=== PATIENT | male | born 1995 | race Caucasian/White ===

== ENCOUNTER → 2023-07-21 | Outpatient (REF) | payer OTHER ==
[2023-07-21 13:40] LABS: SEMEN APPEARANCE OPAQUE (OPAQUE); SEMEN VISCOSITY LIQUID (LIQUID); SEMEN VOLUME 1.2 ml (2.0-5.0)
[2023-07-21 13:41] LABS: SPERM CONCENTRATION 69.9 M/ml (>=15.0); WBC CONCENTRATION >1 M/ml (<=1 M/ml)
== END ==
LOC: M LAB REF 13:29
PROVIDERS: ATTEND Nurse Practitioner Family
DX: N46.9 Male infertility, unspecified (principal)

== ENCOUNTER 2023-08-22 16:50 | Emergency (ER) | payer OTHER ==
[~2023-08-22] VITALS: Ht 162.6 cm; Wt 68.2 kg
[2023-08-22 16:50] VITALS: BP 143/89; TEMP 97.7; O2SAT 99
[2023-08-22] MEDS ORDERED: PRED20TA PO (18:10)
== END 2023-08-22 18:30 | disposition home or self-care (01) ==
LOC: M ED 16:50
DX: R21 Rash and other nonspecific skin eruption (principal); F17.210 Nicotine dependence, cigarettes, uncomplicated

== ENCOUNTER 2024-03-29 14:20 | Emergency (ER) | payer OTHER ==
[~2024-03-29] VITALS: Ht 162.6 cm; Wt 71.0 kg
[~2024-03-29 14:20] MED LIST: PRED20TA PO
[2024-03-29] MEDS: PROPARACAINE 0.5% OPHTH SOL 15ML OD ONE (16:05)
[2024-03-29] MEDS: FLUORESCEIN OPHTH 1MG STRIP OD ONE (16:05)
[2024-03-29] MEDS ORDERED: OFLO5DRO OD (16:36)
[2024-03-29] MEDS: OFLOXACIN 0.3 % (OCUFLOX) OPTH SOL 5ML OD ONE (16:38)
[2024-03-29 16:40] VITALS: BP 117/67; TEMP 98.1; O2SAT 97
== END 2024-03-29 16:43 | disposition home or self-care (01) ==
LOC: M ED 14:20
DX: H10.31 Unspecified acute conjunctivitis, right eye (principal); F17.210 Nicotine dependence, cigarettes, uncomplicated; Z88.8 Allergy status to other drugs, medicaments and biological substances; Z88.5 Allergy status to narcotic agent; Z79.52 Long term (current) use of systemic steroids; Z79.2 Long term (current) use of antibiotics